=== PATIENT | female | born 1955 | race Caucasian/White ===

== ENCOUNTER 2024-03-20 18:36 | Emergency (ER) | payer MEDICARE ==
[~2024-03-20] VITALS: Ht 157.5 cm; Wt 60.3 kg
[~2024-03-20 18:36] MED LIST: LORTAB 7.57.5 MG PO; OLANZAPINE5 MG PO; VALTREX1 GM PO
[2024-03-20 19:33] VITALS: BP 174/91
[2024-03-20] MEDS ORDERED: IPRATROPIUM-Albuterol 0.5MG-2.5MG/3 ML NEB ONE (19:40)
[2024-03-20] MEDS ORDERED: predniSONE 20 MG/TAB PO ONE (20:05)
[2024-03-20] MEDS ORDERED: guaiFENesin-CODEINE 200-20 MG/10 ML UDC PO ONE (20:05)
[2024-03-20] MEDS ORDERED: DOXYCYCLINE HYCLATE 100 MG/CAP PO ONE (20:20)
[2024-03-20] MEDS ORDERED: VIBRAMYCIN100 M2 PO (20:34)
[2024-03-20] MEDS ORDERED: LEVOCETIRIZINE D5 MG PO (20:34)
[2024-03-20] MEDS ORDERED: NEBULIZER MASK IN (20:34)
[2024-03-20] MEDS ORDERED: IPRATROPIU0.5 MG/3 M IN (20:34)
[2024-03-20] MEDS ORDERED: PREDNISONE20 MG PO (20:34)
[2024-03-20] MEDS ORDERED: BENZONATATE200 MG PO (20:35)
[2024-03-20 20:49] VITALS: BP 184/85
== END 2024-03-20 20:48 | disposition home or self-care (01) ==
LOC: ED 18:36
DX: J18.9 Pneumonia, unspecified organism (principal); J44.0 Chronic obstructive pulmonary disease with (acute) lower respiratory infection; J44.1 Chronic obstructive pulmonary disease with (acute) exacerbation; I10 Essential (primary) hypertension; Z20.822 Contact with and (suspected) exposure to COVID-19